=== PATIENT | female | born 1955 | race African-American/Black ===

== ENCOUNTER 2022-06-22 16:33 | Inpatient (IN) | payer MEDICARE, MEDICAID ==
[~2022-06-22] VITALS: Ht 162.6 cm; Wt 65.8 kg
[2022-06-22] MEDS: SODIUM CHLORIDE 0.9% 1,000 ML IV SCH (18:00)
[2022-06-22 19:13] LABS: CLARITY URINE CLEAR (CLEAR); COLOR URINE DARK YELLOW (YELLOW); KETONES URINE NEGATIVE (NEGATIVE); LEUKOCYTE ESTERASE URINE 1+ (NEGATIVE); NITRITE URINE NEGATIVE (NEGATIVE); OCCULT BLOOD URINE NEGATIVE (NEGATIVE); PH URINE 8.5 (4.5-8.0); PROTEIN URINE NEGATIVE (NEGATIVE); SPECIFIC GRAVITY URINE 1.009 (1.005-1.030); UROBILINOGEN URINE 0.2 E.U./dL (0.2-1.0)
[2022-06-22] MEDS ORDERED: MORPHINE SULFATE 4 MG/ML CPJ (NOT FOR IM USE) IV NR (19:30)
[2022-06-22] MEDS ORDERED: ONDANSETRON HCL 4MG/2ML INJ IV NR (19:30)
[2022-06-22] MEDS ORDERED: SODIUM CHLORIDE 0.9% 500 ML IV NR (19:30)
[2022-06-22 19:35] LABS: *AMPHETAMINES SCREEN URINE NEGATIVE (NEGATIVE); *BARBITURATES SCREEN URINE NEGATIVE (NEGATIVE); *BENZODIAZEPINES SCREEN URINE NEGATIVE (NEGATIVE); *COCAINE SCREEN URINE NEGATIVE (NEGATIVE); CANNABINOID URINE SCREEN NEGATIVE (NEGATIVE); METHADONE URINE SCREEN NEGATIVE (NEGATIVE); OPIATES URINE SCREEN NEGATIVE (NEGATIVE); PHENCYCLIDINE URINE SCREEN NEGATIVE (NEGATIVE)
[2022-06-22 19:57] LABS: BASOPHILS % 0.3 % (0.0-2.0); EOSINOPHILS % 0.4 % (0.0-5.0); HEMATOCRIT. 44.2 % (36.0-48.0); HEMOGLOBIN. 14.5 g/dL (12.0-16.0); LYMPHOCYTES % 14.7 % (20.0-50.0); MEAN CORPUSCULAR HEMOGLOBIN 26.1 pg (28.0-32.0); MEAN CORPUSCULAR VOLUME 79.6 fL (81.0-99.0); MEAN PLATELET VOLUME 9.1 fl (7.4-10.4); MONOCYTES % 6.4 % (2.0-8.0); NEUTROPHILS % 78.2 % (40.0-76.0); PLATELET 289 x1000/uL (130-400); RED BLOOD CELL COUNT 5.55 mill/uL (4.2-5.4); RED CELL DISTRIBUTION WIDTH 14.6 % (11.6-14.6)
[2022-06-22 20:12] LABS: CHLORIDE 101 mEq/L (98-107)
[2022-06-22 20:23] LABS: ETHANOL BLOOD < 10 mg/dL
[2022-06-23] MEDS ORDERED: ACETAMINOPHEN 325MG TABLET PO PRN ×2
[2022-06-23] MEDS ORDERED: IPRATROPIUM/ALBUTEROL 0.5-3(2.5)MG/3ML NEB NEB PRN
[2022-06-23] MEDS ORDERED: CLONIDINE 0.1MG TABLET PO PRN
[2022-06-23] MEDS ORDERED: HYDROCODONE/ACETAMINOPHEN 5/325MG TABLET PO PRN
[2022-06-23] MEDS ORDERED: MORPHINE SULFATE 2 MG/ML CPJ (NOT FOR IM USE) IV PRN
[2022-06-23] MEDS ORDERED: ONDANSETRON HCL 4MG/2ML INJ IV PRN
[2022-06-23] MEDS ORDERED: MAGNESIUM/ALUMINUM HYDROXIDE/SIMETHICONE 30ML UDC PO PRN
[2022-06-23] MEDS ORDERED: NALOXONE HCL 0.4MG/ML VIAL IV PRN (00:15)
[2022-06-23] MEDS: ENOXAPARIN 40MG/0.4ML SYR SUBCUT SCH (09:46)
[2022-06-23] MEDS ORDERED: SODIUM CHLORIDE 0.9% 100 ML IV ONE (10:00)
[2022-06-23 10:06] LABS: BASOPHILS % 0.2 % (0.0-2.0); EOSINOPHILS % 0.5 % (0.0-5.0); HEMATOCRIT. 38.1 % (36.0-48.0); HEMOGLOBIN. 12.4 g/dL (12.0-16.0); LYMPHOCYTES % 19.9 % (20.0-50.0); MEAN CORPUSCULAR HEMOGLOBIN 26.2 pg (28.0-32.0); MEAN CORPUSCULAR VOLUME 80.8 fL (81.0-99.0); MEAN PLATELET VOLUME 8.7 fl (7.4-10.4); MONOCYTES % 8.5 % (2.0-8.0); NEUTROPHILS % 70.9 % (40.0-76.0); PLATELET 211 x1000/uL (130-400); RED BLOOD CELL COUNT 4.72 mill/uL (4.2-5.4); RED CELL DISTRIBUTION WIDTH 14.2 % (11.6-14.6)
[2022-06-23 10:08] LABS: CHLORIDE 109 mEq/L (98-107)
[2022-06-23 10:12] LABS: PHOSPHORUS 2.2 mg/dL (2.5-4.9)
[2022-06-23] MEDS ORDERED: NA PHOS,M-B/NA PHOS,DI-BA ENEMA 118ML PR PRN (10:15)
[2022-06-23] MEDS ORDERED: PANTOPRAZOLE 40MG DR TABLET PO SCH (10:30)
[2022-06-23] MEDS ORDERED: SODIUM CHLORIDE 0.9% 1,000 ML IV SCH (10:30)
[2022-06-23] MEDS: PANTOPRAZOLE SODIUM 40 MG/VIAL IV SCH ×2 (11:16→21:11)
[2022-06-23 12:21] VITALS: BP 118/75
[2022-06-23] MEDS ORDERED: BISACODYL 5MG TABLET PO PRN (14:30)
[2022-06-23] MEDS ORDERED: NA PHOS,M-B/NA PHOS,DI-BA ENEMA 118ML PR NR (15:00)
[2022-06-23 20:00] VITALS: BP 146/80
[2022-06-23] MEDS: SODIUM CHLORIDE 0.9% 1,000 ML IV SCH (21:11)
[2022-06-24] VITALS: BP 123/63
[2022-06-24 04:00] VITALS: BP 139/69
[2022-06-24 07:49] LABS: TOTAL IRON BINDING CAPACITY 230 ug/dL (250-450)
[2022-06-24 07:56] LABS: FERRITIN 106 ng/mL (10-291)
[2022-06-24 08:00] VITALS: BP 138/72
[2022-06-24 08:09] LABS: VITAMIN B12 SERUM 276 pg/mL (211-911)
[2022-06-24 08:22] LABS: FOLIC ACID (FOLATE) SERUM > 20.00 ng/mL (>5.38)
[2022-06-24] MEDS: SORBITOL 70% SOLN 30ML PO SCH (08:32)
[2022-06-24] MEDS: ENOXAPARIN 40MG/0.4ML SYR SUBCUT SCH (08:32)
[2022-06-24] MEDS: PANTOPRAZOLE SODIUM 40 MG/VIAL IV SCH ×2 (08:32→20:41)
[2022-06-24 12:00] VITALS: BP 140/70
[2022-06-24] MEDS ORDERED: CEFTRIAXONE SODIUM 1 G/VIAL IM SCH (12:30)
[2022-06-24] MEDS: SODIUM CHLORIDE 0.9% 1,000 ML IV SCH (15:16)
[2022-06-24 16:00] VITALS: BP 146/80
[2022-06-24] MEDS ORDERED: ATEN50TA PO (16:39)
[2022-06-24] MEDS: ATENOLOL 50 MG TABLET PO SCH (17:18)
[2022-06-24] MEDS ORDERED: IRON SUCROSE COMPLEX 100 MG/5 ML ML IV NR (19:15)
[2022-06-24] MEDS ORDERED: BISACODYL 10MG SUPP PR NR (19:15)
[2022-06-24 20:00] VITALS: BP_SYST 136; BP_SYST 140; BP_DIAS 69; BP_DIAS 71
[2022-06-24] MEDS ORDERED: NA PHOS,M-B/NA PHOS,DI-BA ENEMA 118ML PR NR (20:00)
[2022-06-25] VITALS: BP 140/71
[2022-06-25 04:00] VITALS: BP 150/78
[2022-06-25 06:31] LABS: HEMATOCRIT 37.3 % (36.0-48.0); HEMOGLOBIN 12.2 g/dL (12.0-16.0); MEAN CORPUSCULAR HEMOGLOBIN 26.3 pg (28.0-32.0); MEAN CORPUSCULAR VOLUME 80.8 fL (81.0-99.0); PLATELET 247 x1000/uL (130-400); RED BLOOD CELL COUNT 4.62 mill/uL (4.2-5.4); RED CELL DISTRIBUTION WIDTH 14.1 % (11.6-14.6)
[2022-06-25 07:12] LABS: CHLORIDE 107 mEq/L (98-107)
[2022-06-25 07:19] LABS: PHOSPHORUS 1.8 mg/dL (2.5-4.9)
[2022-06-25 08:00] VITALS: BP 150/78
[2022-06-25] MEDS: PANTOPRAZOLE SODIUM 40 MG/VIAL IV SCH (09:02)
[2022-06-25] MEDS: SORBITOL 70% SOLN 30ML PO SCH (09:02)
[2022-06-25] MEDS: ATENOLOL 50 MG TABLET PO SCH (09:03)
[2022-06-25] MEDS: ENOXAPARIN 40MG/0.4ML SYR SUBCUT SCH (09:03)
[2022-06-25 12:00] VITALS: BP 145/79
[2022-06-25] MEDS: SODIUM CHLORIDE 0.9% 1,000 ML IV SCH (12:50)
[2022-06-25] MEDS ORDERED: MOM PO (13:33)
[2022-06-25] MEDS ORDERED: WHEA1POW2 PO (13:33)
[2022-06-25] MEDS ORDERED: FAMO20TA8 PO (13:33)
[2022-06-25] MEDS ORDERED: FERR325T6 PO (13:33)
[2022-06-25 13:44] VITALS: BP 145/79
[2022-06-25 16:00] VITALS: BP 157/72
[2022-06-28 04:11] LABS: OVA & PARASITE EXAM Final report (.)
== END 2022-06-25 16:06 | disposition home or self-care (01) | DRG 389 ==
LOC: ER 16:33 → 8WST 23:10 → SUPCPDRO 23:34 → ENRESERV 06-23 10:48
PROVIDERS: ADMIT Internal Medicine; ATTEND Internal Medicine
DX: K56.609 Unspecified intestinal obstruction, unspecified as to partial versus complete obstruction (principal); E87.1 Hypo-osmolality and hyponatremia; K52.9 Noninfective gastroenteritis and colitis, unspecified; D25.9 Leiomyoma of uterus, unspecified; D50.9 Iron deficiency anemia, unspecified; I10 Essential (primary) hypertension; D72.829 Elevated white blood cell count, unspecified; Z82.49 Family history of ischemic heart disease and other diseases of the circulatory system; Z87.891 Personal history of nicotine dependence; Z90.49 Acquired absence of other specified parts of digestive tract; N20.0 Calculus of kidney
CPT/HCPCS: 36415; 71045; 74176; 76700; 80048; 80053; 80061; 80305; 80320; 81003; 82270; 82607; 82728; 82746; 83036; 83540; 83550; 83605; 83735; 84100; 84145; 84156; 84443; 84484; 85025; 85027; 85651; 87015; 87045; 87177; 87209; 87427; 87449; 87493; 89055; 93005; 99285; C9113; J1650; J2270; J2405; G0480